=== PATIENT | female | born 1960 | race Caucasian/White ===

== ENCOUNTER → 2023-05-10 | Outpatient (CLI) | payer MEDICARE, OTHER ==
--- NOTE | 2023-05-10 15:45 | MR ---
EXAMINATION TYPE: MR brain wo/w con DATE OF EXAM: 05/10/2023 COMPARISON: No comparisons available. HISTORY: Breast cancer. TECHNIQUE: Multiplanar, multisequence images of the brain and brainstem is performed without and with IV contras t, utilizing 4 mL intravenous Gadavist . FINDINGS: There is no extra-axial fluid collection. Scattered T2/FLAIR hyperintense foci within the p eriventricular and subcortical white matter and left cerebellum. No corresponding enhancement identif ied. There is corresponding restricted diffusion involving the left cerebellum lesion measuring up to 6 mm (series 303, image 80). Developmental venous anomaly identified within the right cerebellum. No other regions of enhancement injury. The ventricular system and cisternal spaces are normal in size and appearance. The brain volume is age appropriate. Age-appropriate cerebral volume loss. No foci o f susceptibility artifact identified within the SWI sequences. Midline structures demonstrate normal morphology. The craniocervical junction appears within normal limits. Bilateral aphakia. Mild to moderate mucosal thickening of the bilateral maxillary sinuses. M ild mucosal thickening identified within the right aspect of the nasopharynx. IMPRESSION: 1. Few scattered FLAIR signal hyperintense foci within the periventricular and subcortical white henry er and the left cerebellum. No corresponding contrast enhancement. There is corresponding restricted diffusion within the left cerebellum FLAIR signal focus. Etiologies include acute/subacute infarct ve rsus metastasis versus other etiologies such as chronic small vessel ischemic disease. Correlation wi th prior MR imaging is recommended to assess for interval change. 2. Developmental venous anomaly within the right cerebellum. 3. Paranasal sinus disease.
== END | disposition home or self-care (01) ==
LOC: RADMRIMAIN 13:35
PROVIDERS: ATTEND Internal Medicine
DX: C50.912 Malignant neoplasm of unspecified site of left female breast (principal); G93.89 Other specified disorders of brain; J34.89 Other specified disorders of nose and nasal sinuses
CPT/HCPCS: 70553; A9585

== ENCOUNTER → 2023-05-15 | Outpatient (CLI) | payer MEDICARE, OTHER ==
--- NOTE | 2023-05-20 08:30 | PE ---
EXAMINATION TYPE: PET CT fusion skull to thigh DATE OF EXAM: 05/15/2023 COMPARISON: CT abdomen and pelvis 04/14/2023, CT chest 04/14/2023 Prior PET/CT: No prior PET. HISTORY: Breast cancer TECHNIQUE: Following the intravenous administration of 11.11 mCi of F-18 FDG, whole body images are performed from the skull base to the midthigh. Images are reviewed on the computer in the coronal, a xial, and sagittal planes. Reconstructed rotating images are created on independent workstation and reviewed on the computer. A localization and attenuation correction CT is performed in conjunction with the PET scan. DLP: 188.41 mGycm SCAN: Subsequent Blood glucose: 98 mg/dL Average Mediastinum SUV: 1.66 Average Liver SUV: 2.03 FINDINGS: NECK: Some mild inflammatory change may be at the left C1-C2 facet. Metastasis not excluded. There is a small focus of radiotracer within the subcutaneous tissue left posterior neck above the le randolph of the clavicles, image 41 is the 1.89. Infection and metastatic disease should be considered. THORAX: There is intense uptake posterior to the right lobe of thyroid. This measures 6.44 and is preeti picious for metastatic disease. There is some extension towards the superior mediastinum adjacent to the trachea there is additional right paratracheal intense uptake with SUV of 7.05, example image 69. There is a focus of radiotracer accumulation within the medial left upper lung field with an SUV of 5 .96. Image 72. A smaller focus of radiotracer accumulation is in the lateral right upper lobe, image 75 with SUV 2.84. There is marked increased uptake within the subcarinal lymph node with an SUV of 6.41. A right hilar lymph node, 6 image 687 has an SUV of 4.83. There is right posterior infrahilar radiotracer within HELM V of 4.54. Small nodule within the anterior mediastinum has an SUV of 1.3, image 92 ABDOMEN: No abnormal uptake PELVIS: No abnormal uptake OSSEOUS STRUCTURES: There is a focus radiotracer within a posterior left rib, image 76 SUV 1.68. Urania static disease could be considered. Posttraumatic change could also be considered within the differen tial. There is focal uptake within the inferior sternum, image 96-100 SUV 3.29-4.27. There is a focus radiotracer within the T12 vertebral body with an SUV 3.6, image 109. There is radiotracer within th e greater trochanter of the left hip. 2.[address]: Lung nodules are well visualized. COMPARISON: Findings are similar to the recent CT IMPRESSION: 1. Increased uptake within multiple pulmonary nodules compatible with metastatic disease. 2. Mediastinal uptake including subcarinal paratracheal superior mediastinal uptake is compatible wit h metastatic disease. 3. Metastasis to the osseous structures including greater trochanter left hip, T12 vertebral body, an d lower sternum. Posterior mid left rib metastasis traumatic change be considered.
== END | disposition home or self-care (01) ==
LOC: RADPETMAIN 13:18
PROVIDERS: ATTEND Internal Medicine
DX: C79.51 Secondary malignant neoplasm of bone (principal); C50.912 Malignant neoplasm of unspecified site of left female breast; R91.8 Other nonspecific abnormal finding of lung field
CPT/HCPCS: 78815; A9552

== ENCOUNTER 2023-05-27 11:19 | Day surgery (SDC) | payer MEDICARE, OTHER ==
[~2023-05-27 11:19] MED LIST: LACTATED RINGERS 1,000 ML IV SCH
[2023-05-27] MEDS ORDERED: ONDANSETRON 4 MG/2 ML VIAL ONE ×2 (12:57→13:05)
[2023-05-27] MEDS ORDERED: LIDOCAINE 1% (10MG/ML) FOR IV START INTRADERMA ONE (12:59)
[2023-05-27] MEDS ORDERED: ONDANSETRON 4 MG/2 ML VIAL IVP ONE (12:59)
[2023-05-27] MEDS ORDERED: DEXAMETHASONE SOD PHOSPHATE 4 MG/ML 1 ML VIAL IV ONE (12:59)
--- NOTE | 2023-05-27 13:04 | CT ---
EXAMINATION TYPE: CT chest wo con CT DLP: 221 mGycm, Automated exposure control for dose reduction was used. DATE OF EXAM: 05/27/2023 12:40 PM COMPARISON: Pet/CT 05/15/2023 CLINICAL INDICATION:Female, 63 years old with history of R91.1 Solitary Pulmonary Nodule; PHH, ION CH EST CT. TECHNIQUE: Multiple axial images were obtained through the chest. Sagittal and coronal reformats were created for review. Contrast used: (None if empty) Oral contrast used: (None if empty) FINDINGS: LUNGS/ PLEURA: Trace right pleural effusion which appears loculated. The right pulmonary hilum prior FDG avid lymph node measuring 17 x 16 mm. Additional right lower lobe mass measuring 25 x 16 mm. Left upper lung mass along the major fissure measuring 18 x 17 mm. Additional smaller pulmonary nodules w hich were FDG avid on prior PET/CT. Mild centrilobular emphysema changes. No focal consolidation or p neumothorax. AIRWAY: Patent and unremarkable. HEART: Size within normal limits. MEDIASTINUM: Subcarinal lymph node measuring up to 14 mm in short axis. Right low paratracheal partially calcified lymph node measuring up to 15 mm in short axis. Prevascula r space lymphadenopathy on the right r high paratracheal measuring 14 mm in short axis. VASCULATURE: Atherosclerosis of the arterial vasculature including the carotid bifurcations and the c oronary arteries. MUSCULOSKELETAL: No acute fracture. Osseous metastatic disease including Sternal mass in T12 vertebra l body mass. Degenerative on prior CT scans. SOFT TISSUES/LYMPH NODES: Left posterior upper back nodu le which is mildly FDG avid measures roughly 7 mm. LOWER NECK: No significant findings. Left posterior upper back UPPER ABDOMEN: No significant findings. IMPRESSION: 1. Redemonstration of FDG avid pulmonary masses and mediastinal lymph nodes, right pulmonary hilum l ymph nodes, and osseous metastatic disease as seen on PET/CT. 2. Left upper back 7 mm subcutaneous nodule just under the epidermis correlate with dermatologic zeb luation. 3. Mild emphysema changes. 4. Loculated right pleural effusion
[2023-05-27] MEDS ORDERED: NEOSTIGMINE 1 MG/ML 10 ML VIAL ONE (13:05)
[2023-05-27] MEDS ORDERED: SUCCINYLCHOLINE CHLORIDE 200 MG/10 ML VIAL IV ONE (13:05)
[2023-05-27] MEDS ORDERED: HYDROmorphone (PF) 1 MG/ML ONE (13:05)
[2023-05-27] MEDS ORDERED: PROPOFOL 10 MG/ML 20 ML VIAL IV ONE (13:05)
[2023-05-27] MEDS ORDERED: ROCURONIUM 10 MG/ML (5 ML VIAL) IV ONE (13:05)
[2023-05-27] MEDS ORDERED: LIDOCAINE 2% INJ 20 MG/ML (2 ML VIAL) ONE (13:05)
[2023-05-27] MEDS ORDERED: PHENYLEPHRINE-0.9% NACL SYG 1,000 MCG/10 ML SYRINGE ONE (13:05)
[2023-05-27] MEDS ORDERED: GLYCOPYRROLATE 0.2 MG/ML 2 ML VIAL ONE (13:05)
[2023-05-27] MEDS ORDERED: fentaNYL (PF) 50 MCG/ML 2 ML AMP ONE (13:05)
[2023-05-27] MEDS ORDERED: LIDOCAINE 4% LTA KIT (4 ML) TOPICAL ONE (13:05)
[2023-05-27] MEDS ORDERED: LACTATED RINGERS 1,000 ML IV ONE (14:31)
--- NOTE | 2023-05-27 14:59 | FL ---
Intraoperative/procedural fluoroscopic services were provided for bronchoscopy. Total fluoroscopy maría e is 2 minutes 10 seconds with a total of 3 submitted images to PACS. Total DAP 6.8148 Gycm2. Please see the operative note for further details.
[2023-05-27 15:06] VITALS: TEMP 98.1
--- NOTE | 2023-05-27 15:17 | XR ---
EXAMINATION TYPE: XR chest 1V portable DATE OF EXAM: 05/27/2023 COMPARISON: 05/27/2023 HISTORY: Postbronchoscopy TECHNIQUE: Single frontal view of the chest is obtained. FINDINGS: Bilateral spiculated masses. There is no sizable pneumothorax or pneumomediastinum. There is a lateral indentation of the right trachea. Right-sided consolidation and small effusion or pleura l thickening. Surgical clips along the left axilla and chest. Hypertrophic and degenerative change sp ine. Atherosclerotic change aorta. IMPRESSION: 1. COPD with bilateral spiculated masses but no sizable pneumothorax. 2. Right lower lobe infiltrate and small effusion.
[2023-05-27 15:32] VITALS: RESP 20
[2023-05-27 16:32] VITALS: BP 129/81; PULSE 117
--- NOTE | 2023-05-27 17:12 | P.PCN ---
Date of Procedure: 05/27/23 Operative Findings: Preoperative Diagnosis: Left uppwe lobe mass Right lower lobe pulmonary nodule Mediastinal lymphadenopathy Postoperative Diagnosis: Left uppwe lobe mass Right lower lobe pulmonary nodule Mediastinal lymphadenopathy, involving the subcarinal, right hilar and right paratracheal stations Procedure(s) Performed: Flexible bronchoscopy Robotic-assisted bronchoscopy and addition to radial ultrasound evaluation of the pulmonary nodule Robotic-assisted transbronchial needle aspirate, transbronchial biopsies, transbronchial brushing of left upper lobe mass in addition to a bronchioloalveolar lavage Robotic-assisted transbronchial biopsies of right right lower lobe in addition to a bronchioloalveolar lavage EBUS/endobronchial ultrasound EBUS guided biopsies of station 7 and station 4R lymph nodes. Anesthesia: GETA Surgeon: Rolf Barlow Estimated Blood Loss (ml): 0 Pathology: other Condition: stable Disposition: same day Operative Findings: A physical exam was performed. Informed consent was obtained from the patient after explaining all the risks (pneumothorax, life threatening bleeding, infection and adverse effects due to medications), benefits and alternatives to the procedure which the patient appeared to understand and so stated. The patient was connected to the monitoring devices. General anesthesia was induced and the patient was intubated by anesthesia. A final timeout was performed and the procedure confirmed by the attending staff bronchoscopist. The bronchoscope was inserted and the airway examined. The flexible bronchoscope was removed and the robotic bronchoscope was inserted. Registration was completed. I next guided the robotic bronchoscope using the navigation system into the right lower lobe posterior segment. Once in proper position, the bronchoscope was frozen. The radial EBUS probe was placed through the bronchoscope and confirmed abnormal u/s images vs normal lung. A needle was placed through the working channel and under fluoroscopic guidance, we sampled the area thought to have the mass twice. We then used a cloud biopsy pattern with ultrasound confirmation for 2 additional passes with the needle. U/S evaluation was then used to reconfirm location. Forceps were next introduced through working channel and extended the appropriate distance and 3 transbronchial biopsies were performed using fluoroscopic guidance. The u/s probe was then reinserted to confirm location. When confirmed this process was repeated for a total of 6 transbronchial biopsies. After reassessment with EBUS, a brush was placed through the extendable working channel for 1 pass with fluoroscopic guidance. U/S evaluation was then used to confirm location. 40ml of saline was then instilled into the area of the lesion. The robotic bronchoscope was removed and the airway inspected with a flexible bronchoscope and 10 ml of effluent from the BAL was collected. The aspirate was bloody and ultimately declotted and based on that, the sample was discarded. Subsequently, the robotic bronchoscope was directed to the apical segment of the left upper lobe. Ultrasound evaluation confirmed location. Using robotic guidance, the bronchoscope was removed hours the lesion and an endobronchial lesion was identified. Forceps was introduced and transbronchial biopsies of the left upper lobe mass was done and a total of 6-8 biopsies were obtained. Also, a bronchial lavage the right apex was done with a total of 20 mL of fluid was infused and 10 mL was aspirated. Fluoroscopic check for pneumothorax was negative upon completion of the procedure. There was 0 ml blood loss with the procedure. Subsequent to that, the endobronchial ultrasound was inserted and the mediastinal lymph node evaluation was done. A large subcarinal station 7 lymph node was identified measuring approximately 3 cm in size. Another 2.5 cm right paratracheal station 4R lymph node was also identified. Using a 22 guage Vizishot , transbronchial needle aspirates of the subcarinal and station 4R lymph node was done without any complications. FINDINGS: 1.The airways appeared normal 2 Successful navigation, ultrasonographic identification, and biopsies of right lower lobe mass in the left upper lobe mass 3.The the radial ultrasound view was (Concentric/Eccentric)}. 3 successful transbronchial needle aspirate of subcarinal and station 4R lymph node RECOMMENDATIONS: Await pathology and cytology results The referring physician will be alerted to the results when available. The patient was advised to follow up with the referring physician with the biopsy results
== END 2023-05-27 16:27 | disposition home or self-care (01) ==
LOC: ORWHC2ENDO 11:19
PROVIDERS: ATTEND Internal Medicine Critical Care Medicine
DX: C34.31 Malignant neoplasm of lower lobe, right bronchus or lung (principal); J90 Pleural effusion, not elsewhere classified; J43.9 Emphysema, unspecified; F17.210 Nicotine dependence, cigarettes, uncomplicated; Z79.51 Long term (current) use of inhaled steroids; Z85.3 Personal history of malignant neoplasm of breast
CPT/HCPCS: 88108; 88305; 88342; 88341; 71045; 71250; 31628; 31633; 31623; 31624; 31652; J0330; J1100; J2710; J2405; J3010; J1170; J2704; J2001; J2371; S2900

== ENCOUNTER 2023-06-12 13:11 | Emergency (ER) | payer MEDICARE, OTHER ==
[2023-06-12 13:35] VITALS: TEMP 98.2
--- NOTE | 2023-06-12 14:49 | ED ---
Extremity Problem HPI - General Chief complaint: Extremity Problem,Nontraumatic Stated complaint: swollen hot red right leg Time Seen by Provider: 06/12/23 14:42 Source: patient, RN notes reviewed Mode of arrival: ambulatory Limitations: no limitations - History of Present Illness Initial comments: 63-year-old female who presents with complaints of the onset Wednesday night and Wednesday morning today being Wednesday of right lower extremity pain redness ascending up to the back of her thigh. She's had chills but no fevers no sweats no trauma reported no history of blood clots in the past. No injury at all reported in recent time. No shortness breath no chest pain no palpitations or other complaints or modifying factors MD Complaint: extremity pain, other - Related Data Home Medications Medication Instructions Recorded Confirmed Fluticasone Propion/Salmeterol 1 puff INHALATION RT-BID 05/24/23 06/12/23 [Fluticasone-Salmeterol 250-50] Tiotropium [place] [Spiriva 1 puff INHALATION RT-DAILY 05/24/23 06/12/23 Handihaler] cycloSPORINE [Restasis Multidose] 1 drop BOTH EYES BID 05/24/23 06/12/23 Omeprazole 20 mg PO DAILY 06/12/23 06/12/23 Previous Rx's Medication Instructions Recorded Apixaban [Eliquis Starter Pack 5 - 10 mg PO DIRECTED 30 Days 06/12/23 (for VTE)] #1 each Allergies Allergy/AdvReac Type Severity Reaction Status Date / Time No Known Allergies Allergy Verified 06/12/23 17:12 Review of Systems ROS Statement: Those systems with pertinent positive or pertinent negative responses have been documented in the HPI. ROS Other: All systems not noted in ROS Statement are negative. Past Medical History Past Medical History: Cancer, COPD, GERD/Reflux Additional Past Medical History / Comment(s): dry eyes,breast cancer, History of Any Multi-Drug Resistant Organisms: None Reported Past Surgical History: Breast Surgery, Orthopedic Surgery Additional Past Surgical History / Comment(s): carpal tunnel ,cataracts, partial mastectomy lft, rt ear sinus Past Anesthesia/Blood Transfusion Reactions: No Reported Reaction Past Psychological History: Anxiety Smoking Status: Current every day smoker Past Alcohol Use History: Occasional Past Drug Use History: None Reported - Past Family History Mother Family Medical History: Cancer Additional Family Medical History / Comment(s): mealanoma General Exam - General Exam Comments Initial Comments: This is a well-developed frail-appearing female who is awake alert oriented 4 Limitations: no limitations General appearance: alert, in no apparent distress Head exam: Present: atraumatic, normocephalic, normal inspection Eye exam: Present: normal appearance, PERRL, EOMI. Absent: scleral icterus, conjunctival injection, periorbital swelling ENT exam: Present: normal exam, mucous membranes moist Neck exam: Present: normal inspection, full ROM, other (no stridor JVD or bruits). Absent: tenderness, meningismus, lymphadenopathy Respiratory exam: Present: normal lung sounds bilaterally. Absent: respiratory distress, wheezes, rales, rhonchi, stridor Cardiovascular Exam: Present: tachycardia. Absent: systolic murmur, diastolic murmur, rubs, gallop, clicks GI/Abdominal exam: Present: soft, normal bowel sounds. Absent: distended, tenderness, guarding, rebound, rigid Extremities exam: Present: full ROM, tenderness (Tenderness palpation of the posterior thigh no palpable cords however there is increased localized temperature with erythema ascending from the medial ankle upward.), normal capillary refill. Absent: pedal edema, joint swelling, calf tenderness Back exam: Present: normal inspection Neurological exam: Present: alert, oriented X3, CN II-XII intact Psychiatric exam: Present: normal affect, normal mood Skin exam: Present: warm, dry, intact, normal color. Absent: rash Course Vital Signs 06/12/23 06/12/23 13:25 17:14 Temperature 98.2 F Pulse Rate 112 H Respiratory 20 Rate Blood Pressure 129/79 132/77 O2 Sat by Pulse 99 99 Oximetry Procedures - Smoking Cessation Time Spent Discussing Smoking Cessation w/Patient (Minutes): 4 Medical Decision Making - Medical Decision Making I did discuss the findings with the patient and her . Patient was given options of inpatient versus outpatient she does not want to be admitted. She will be started on Eliquis and follow-up with Dr. Rodriguez as they have planned. Was pt. sent in by a medical professional or institution (, PA, STRETCHER HELPER, urgent care, hospital, or assisted...) When possible be specific @ -No Did you speak to anyone other than the patient for history (EMS, parent, family, police, friend...)? What history was obtained from this source @ -Patient's Did you review nursing and triage notes (agree or disagree)? Why? @ -I reviewed and agree with nursing and triage notes Were old charts reviewed (outside hosp., previous admission, EMS record, old EKG, old radiological studies, urgent care reports/EKG's, assisted records)? Report findings @ - old charts were reviewed Differential Diagnosis (chest pain, altered mental status, abdominal pain women, abdominal pain men, vaginal bleeding, weakness, fever, dyspnea, syncope, headache, dizziness, GI bleed, back pain, seizure, CVA, palpatations, mental health, musculoskeletal)? @ -DVT, phlebitis EKG interpreted by me (3pts min.). @ -Not done X-rays interpreted by me (1pt min.). @ -None done CT interpreted by me (1pt min.). @ -None done U/S interpreted by me (1pt. min.). @ -Interpreted by me evidence of DVT proximal calf up to the popliteal vein on the right What testing was considered but not performed or refused? (CT, X-rays, U/S, labs)? Why? @ -None What meds were considered but not given or refused? Why? @ -None Did you discuss the management of the patient with other professionals (professionals i.e. , PA, STRETCHER HELPER, lab, RT, psych nurse, social group worker, school plant consultant, teacher, chief financial officer, rifle case repairer)? Give summary @ -No Was smoking cessation discussed for >3mins.? @ -Yes Was critical care preformed (if so, how long)? @ -No Were there social determinants of health that impacted care today? How? (Homelessness, low income, unemployed, alcoholism, drug addiction, transportation, low edu. Level, literacy, decrease access to med. care, shelter, rehab)? @ -No Was there de-escalation of care discussed even if they declined (Discuss DNR or withdrawal of care, Hospice)? DNR status @ -No What co-morbidities impacted this encounter? (DM, HTN, Smoking, COPD, right lower extremity, Cancer, CVA, ARF, Chemo, Hep., AIDS, mental health diagnosis, sleep apnea, morbid obesity)? @ -History of breast cancer, COPD, GERD, smoking Was patient admitted / discharged? Hospital course, mention meds given and route, prescriptions, significant lab abnormalities, going to OR and other pertinent info. @ -hospital course patient was discharged with follow-up with her doctor as she is requested Undiagnosed new problem with uncertain prognosis? @ -DVT right lower extremity Drug Therapy requiring intensive monitoring for toxicity (Heparin, Nitro, Insulin, Cardizem)? @ -No Were any procedures done? @ -No Diagnosis/symptom? @ -Right lower extremity DVT, dehydration Acute, or Chronic, or Acute on Chronic? @ -Acute Uncomplicated (without systemic symptoms) or Complicated (systemic symptoms)? @ - Side effects of treatment? @ -No Exacerbation, Progression, or Severe Exacerbation? @ -No Poses a threat to life or bodily function? How? (Chest pain, [place], [place], pneumonia, PE, COPD, DKA, ARF, appy, cholecystitis, CVA, Diverticulitis, Homicidal, Suicidal, threat to staff... and all critical care pts) @ - - Lab Data Result diagrams: 06/12/23 14:42 06/12/23 14:42 Lab Results 06/12/23 06/12/23 06/12/23 Range/Units 14:42 14:42 15:39 WBC 7.8 (3.8-10.6) k/uL RBC 5.65 H (3.80-5.40) m/uL Hgb 18.5 H (11.4-16.0) gm/dL Hct 55.8 H (34.0-46.0) % MCV 98.8 (80.0-100.0) fL MCH 32.7 (25.0-35.0) pg MCHC 33.1 (31.0-37.0) g/dL RDW 12.7 (11.5-15.5) % Plt Count 445 (150-450) k/uL MPV 7.5 Neutrophils % 76 % Lymphocytes % 13 % Monocytes % 7 % Eosinophils % 2 % Basophils % 0 % Neutrophils # 6.0 (1.3-7.7) k/uL Lymphocytes # 1.0 (1.0-4.8) k/uL Monocytes # 0.6 (0-1.0) k/uL Eosinophils # 0.2 (0-0.7) k/uL Basophils # 0.0 (0-0.2) k/uL PT 9.6 L (10.0-12.5) sec INR 0.8 (<1.2) APTT 24.8 (22.0-30.0) sec Sodium 133 L (137-145) mmol/L Potassium 5.5 H (3.5-5.1) mmol/L Chloride 99 (98-107) mmol/L Carbon Dioxide 23 (22-30) mmol/L Anion Gap 11 mmol/L BUN 7 (7-17) mg/dL Creatinine 0.39 L (0.52-1.04) mg/dL Est GFR (CKD-EPI)AfAm >90 (>60 ml/min/1.73 sqM) Est GFR (CKD-EPI)NonAf >90 (>60 ml/min/1.73 sqM) Glucose 97 (74-99) mg/dL Calcium 9.6 (8.4-10.2) mg/dL Total Bilirubin 1.3 (0.2-1.3) mg/dL AST 37 H (14-36) U/L ALT 13 (4-34) U/L Alkaline Phosphatase 114 (38-126) U/L Total Protein 7.6 (6.3-8.2) g/dL Albumin 3.7 (3.5-5.0) g/dL - Radiology Data Interpreted by me: Ultrasound interpreted by me evidence of DVT in right lower extremity Disposition Clinical Impression: Deep vein thrombosis (DVT) of lower extremity, Dehydration, History of breast cancer Disposition: HOME SELF-CARE Condition: Good Prescriptions: Apixaban [Eliquis Starter Pack (for VTE)] 5 - 10 mg PO DIRECTED 30 Days #1 each Is patient prescribed a controlled substance at d/c from ED?: No Referrals: None,Stated [Primary Care Provider] - 1-2 days Decision Date: 06/12/23 Decision Time: 17:41
--- NOTE | 2023-06-12 14:58 | US ---
EXAMINATION TYPE: US venous doppler duplex LE RT DATE OF EXAM: 06/12/2023 2:29 PM COMPARISON: NONE CLINICAL INDICATION: Female, 63 years old with history of pain; Right calf pain SIDE PERFORMED: Right TECHNIQUE: The lower extremity deep venous system is examined utilizing real time linear array sonog david with graded compression, doppler sonography and color-flow sonography. VESSELS IMAGED: Common Femoral Vein Deep Femoral Vein Greater Saphenous Vein * Femoral Vein Popliteal Vein Small Saphenous Vein * Proximal Calf Veins (* superficial vessels) Right Leg: Positive for DVT popliteal vein and proximal calf vein Remaining vessels are patent with normal compressibility. IMPRESSION: Deep venous thrombosis involving the right popliteal vein. Findings are causing discussed with ordering provider Dedoe on 06/12/[address] Mckenzie.
[2023-06-12 14:59] LABS: Basophils % (A) 0 %; Eosinophils # (A) 0.2 k/uL (0-0.7); Eosinophils % (A) 2 %; HGB 18.5 gm/dL (11.4-16.0); Lymphocytes % (A) 13 %; MCH 32.7 pg (25.0-35.0); MCHC 33.1 g/dL (31.0-37.0); MCV 98.8 fL (80.0-100.0); Mean Platelet Volume 7.5; Monocytes # (A) 0.6 k/uL (0-1.0); Monocytes % (A) 7 %; Neutrophils % (A) 76 %; Platelet Count 445 k/uL (150-450); RBC 5.65 m/uL (3.80-5.40); RDW 12.7 % (11.5-15.5); WBC 7.8 k/uL (3.8-10.6)
[2023-06-12 15:18] LABS: ALT 13 U/L (4-34); AST 37 U/L (14-36); African American GFR (CKD) >90 (>60 ml/min/1.73 sqM); Albumin 3.7 g/dL (3.5-5.0); Alkaline Phosphatase 114 U/L (38-126); Anion Gap 11 mmol/L; Blood Urea Nitrogen 7 mg/dL (7-17); Calcium 9.6 mg/dL (8.4-10.2); Carbon Dioxide 23 mmol/L (22-30); Chloride 99 mmol/L (98-107); Glucose 97 mg/dL (74-99); Non-African American GFR(CKD) >90 (>60 ml/min/1.73 sqM); Sodium 133 mmol/L (137-145); Total Bilirubin 1.3 mg/dL (0.2-1.3); Total Protein 7.6 g/dL (6.3-8.2)
[2023-06-12 15:21] LABS: Potassium 5.5 mmol/L (3.5-5.1)
[2023-06-12 15:30] LABS: HCT 55.8 % (34.0-46.0)
[2023-06-12 16:02] LABS: Partial Thromboplastin Time 24.8 sec (22.0-30.0); Prothrombin Time 9.6 sec (10.0-12.5)
--- NOTE | 2023-06-12 16:04 | XR ---
EXAMINATION TYPE: XR chest 2V DATE OF EXAM: 06/12/2023 3:51 PM CLINICAL INDICATION:Female, 63 years old with history of DVT, tachycardia. COMPARISON: Chest radiographs from TECHNIQUE: XR chest 2V Frontal and lateral views of the chest. FINDINGS: Lungs/Pleura: Right pleural effusion is identified with associated linear opacity which likely repres ents tracking of fluid. No evidence of pneumothorax. Pulmonary vascularity: Unremarkable. Heart/mediastinum: Cardiomediastinal silhouette is unremarkable. Musculoskeletal: No acute osseous pathology. Postsurgical changes are identified in the left axilla. IMPRESSION: Small right pleural effusion.
[2023-06-12 16:14] LABS: INR 0.8 (<1.2)
[2023-06-12] MEDS ORDERED: fentaNYL (PF) 50 MCG/ML 2 ML AMP IVP ONE (16:50)
[2023-06-12] MEDS ORDERED: APIXABAN 5 MG TAB PO STA (17:28)
[2023-06-12 20:44] VITALS: BP 123/76; PULSE 89; RESP 16
== END 2023-06-12 20:39 | disposition home or self-care (01) ==
LOC: EC 13:11
DX: I82.431 Acute embolism and thrombosis of right popliteal vein (principal); E86.0 Dehydration; J90 Pleural effusion, not elsewhere classified; J44.9 Chronic obstructive pulmonary disease, unspecified; F17.200 Nicotine dependence, unspecified, uncomplicated; K21.9 Gastro-esophageal reflux disease without esophagitis; Z86.59 Personal history of other mental and behavioral disorders; Z79.899 Other long term (current) drug therapy; Z79.51 Long term (current) use of inhaled steroids; Z85.3 Personal history of malignant neoplasm of breast
CPT/HCPCS: 36415; 71046; 80053; 85025; 85610; 85730; 99284; 99406

== ENCOUNTER → 2023-06-25 | Outpatient (CLI) | payer MEDICARE, OTHER ==
--- NOTE | 2023-06-26 12:01 | CA ---
Transthoracic Echo Report Name: Joan Huston Age: 63 Gender: F : 1960 Exam Date: 06/25/2023 16:52 Exam Location: [place] [facility] Ht (in): 64 Wt (lb): 89 Ordering Physician: Dawn Rodriguez MD Attending/Referring Phys: It Analyst Tiffany Alvarez [facility] Procedure CPT: Indications: Z01.818 Pre-procedural Cardiac Hx: Technical Quality: Fair Contrast 1: Total Dose (mL): Contrast 2: Total Dose (mL): MEASUREMENTS (Male / Female) Normal Values 2D ECHO LV Diastolic Diameter PLAX 3.8 cm 4.2 - 5.9 / 3.9 - 5.3 cm LV Systolic Diameter PLAX 2.7 cm IVS Diastolic Thickness 0.8 cm 0.6 - 1.0 / 0.6 - 0.9 cm LVPW Diastolic Thickness 0.8 cm 0.6 - 1.0 / 0.6 - 0.9 cm LV Relative Wall Thickness 0.4 LVOT Diameter 2.0 cm LV Diastolic Volume MOD BP 39.4 cm??? 67 - 155 / 56 - 104 cm??? LV Systolic Volume MOD BP 12.1 cm??? 22 - 58 / 19 - 49 cm??? LV Ejection Fraction MOD BP 69.2 % >= 55 % LV Cardiac Index MOD BP 1963.1 cm???/min???m??? LV Diastolic Volume MOD 4C 44.4 cm??? LV Systolic Volume MOD 4C 12.6 cm??? LV Ejection Fraction MOD 4C 71.7 % LV Cardiac Index MOD 4C 2290.3 cm???/min???m??? LV Diastolic Length 4C 7.1 cm LV Systolic Length 4C 5.7 cm LV Diastolic Volume MOD 2C 33.3 cm??? LV Systolic Volume MOD 2C 11.5 cm??? LV Ejection Fraction MOD 2C 65.3 % LV Cardiac Index MOD 2C 1565.0 cm???/min???m??? LV Diastolic Length 2C 6.7 cm LV Systolic Length 2C 6.0 cm M-MODE Aortic Root Diameter MM 2.9 cm LA Systolic Diameter MM 3.1 cm LA Ao Ratio MM 1.1 AV Cusp Separation MM 1.9 cm DOPPLER AV Peak Velocity 121.1 cm/s AV Peak Gradient 5.9 mmHg AV Mean Velocity 89.1 cm/s AV Mean Gradient 3.5 mmHg AV Velocity Time Integral 22.8 cm LVOT Peak Velocity 106.3 cm/s LVOT Peak Gradient 4.5 mmHg LVOT Velocity Time Integral 19.9 cm LVOT Stroke Volume 60.0 cm??? LVOT Stroke Volume Index 43.3 ml/m??? LVOT Cardiac Index 4320.9 cm???/min???m??? AV Area Cont Eq vti 2.6 cm??? AV Area Cont Eq pk 2.6 cm??? Mitral E Point Velocity 72.4 cm/s Mitral A Point Velocity 90.7 cm/s Mitral E to A Ratio 0.8 MV Deceleration Time 130.3 ms LV E' Lateral Velocity 8.9 cm/s Mitral E to LV E' Lateral Ratio 8.1 LV E' Septal Velocity 8.0 cm/s Mitral E to LV E' Septal Ratio 9.0 TR Peak Velocity 241.1 cm/s TR Peak Gradient 23.2 mmHg Right Atrial Pressure 3.0 mmHg Pulmonary Artery Systolic Pressu 26.2 mmHg Right Ventricular Systolic Press 26.2 mmHg FINDINGS Left Ventricle Left ventricular wall thickness normal. Small left ventricular cavity. Normal left ventricular systolic function with no obvious regional wall motion abnormalities. Left ventricular ejection fraction is estimated at 55-60%. Right Ventricle Normal right ventricular size. Right Atrium Normal right atrial size. Left Atrium Normal left atrial size. Mitral Valve Structurally normal mitral valve. Trace mitral regurgitation. Aortic Valve Trileaflet aortic valve. Diffuse thickening (sclerosis) of the aortic valve cusps without reduced excursion. No aortic regurgitation. Tricuspid Valve Structurally normal tricuspid valve. Trace tricuspid regurgitation. Pulmonic Valve Pulmonic valve not well visualized. Pericardium No pericardial effusion. Aorta Normal size aortic root. CONCLUSIONS Left ventricular ejection fraction 55-60% Trace mitral regurgitation Trace tricuspid regurgitation RVSP 26 Previewed by: Dr. Enrique Cotto DO (Electronically Signed) Final Date: 26 June 2023 12:00
== END | disposition home or self-care (01) ==
LOC: RADECHMAIN 16:12
PROVIDERS: ATTEND Internal Medicine
DX: Z01.818 Encounter for other preprocedural examination (principal); I08.1 Rheumatic disorders of both mitral and tricuspid valves; C34.90 Malignant neoplasm of unspecified part of unspecified bronchus or lung; C50.912 Malignant neoplasm of unspecified site of left female breast; R91.1 Solitary pulmonary nodule; Z71.3 Dietary counseling and surveillance
CPT/HCPCS: 93306

== ENCOUNTER → 2023-11-25 | Outpatient (CLI) | payer MEDICARE, OTHER ==
--- NOTE | 2023-11-26 10:59 | PE ---
EXAMINATION TYPE: PET CT fusion skull to thigh DATE OF EXAM: 11/25/2023 CLINICAL INDICATION:Female, 63 years old with history of C50.912; TECHNIQUE: Following the intravenous administration of 9.29 mCi of F-18 FDG, whole body images are performed from the skull base to the midthigh. Images are reviewed on the computer in the coronal, a xial, and sagittal planes. Reconstructed rotating images are created on independent workstation and reviewed on the computer. A non-contrast CT is performed in conjunction with the PET scan. Glucose level 100 mg/dL CT DLP: 155 mGycm, Automated exposure control for dose reduction was used. COMPARISON: CT 05/19/2023, PET/CT 05/15/2023, FINDINGS: Mediastinal SUV mean is 2.0. Hepatic parenchyma SUV mean is 2.3. SKULL BASE AND NECK: No suspicious radiotracer activity. CHEST, MEDIASTINUM, AND HILAR REGION: * Right upper lung mass measuring 23 x 20 mm previously 13 x 12 mm. Max SUV 8.2, previously 3.5. Pre viously measuring * Left upper lung mass measuring 24 x 23 mm previously 16 x 14 mgr. Max SUV 13.6, previously 6.0. * Subcarinal lymph node max SUV 2.8, previously 7.4. Right paratracheal lymph node max SUV 3.2, prev iously 7.4. * Right supraclavicular/right high paratracheal lymph node max SUV 2.7, previously 7.4. ABDOMEN AND PELVIS: No suspicious radiotracer activity. MUSCULOSKELETAL STRUCTURES: Osseous uptake with Max SUV in the sternum 5.5, previously 5.3. OTHER CT: Bilaterally aphakia. Atherosclerosis of the carotid bifurcations. This course of the cuenca [place] arteries and arterial vasculature. IMPRESSION: 1. Increased metabolic activity and size of bilateral upper lung metastatic foci. 2. Mediastinal lymph nodes have decreased in size and FDG activity. 3. Stable sternal FDG activity given differences in technique.
== END | disposition home or self-care (01) ==
LOC: RADPETMAIN 11:48
PROVIDERS: ATTEND Internal Medicine
DX: C50.912 Malignant neoplasm of unspecified site of left female breast (principal); J98.4 Other disorders of lung
CPT/HCPCS: 78815; A9552

== ENCOUNTER → 2023-12-31 | Outpatient (CLI) | payer MEDICARE, OTHER ==
[2023-12-31 14:10] LABS: African American GFR (CKD) >90 (>60 ml/min/1.73 sqM); Blood Urea Nitrogen 6 mg/dL (7-17); Non-African American GFR(CKD) >90 (>60 ml/min/1.73 sqM)
--- NOTE | 2024-01-01 14:03 | CT ---
EXAMINATION TYPE: CT chest w con DATE OF EXAM: 12/31/2023 COMPARISON: 11/25/2023 PET/CT HISTORY: f/u lung ca CT DLP: 279 mGycm, Automated exposure control for dose reduction was used. CONTRAST: Performed injected with 100 mL of Isovue 300. TECHNIQUE: Axial images were obtained at 5 mm thick sections. Reconstructed images are reviewed on [employer] computer in the coronal plane. FINDINGS: Portion of the thyroid visualized is normal. There are some mild emphysematous changes present. There is a spiculated density upper right lung field measuring 2.5 cm. Series 4 image 21. This has en larged from comparison. A left suprahilar mass with some mild spiculation upper lung field measures 2 .3 cm. Series 4 image 20. This is stable in size from comparison. There is an approximately 2.3 cm a dean of spiculation in the right lower lung field. Series 4 image 37. This area appears better visual ized on the current exam. These areas have solid components on mediastinal windows. A 0.3 cm punctate densities in the anterior left lung. Series 4 image 27. Streak opacities in the rig ht middle lobe. No enlarged mediastinal or hilar adenopathy is evident. The ascending aorta diameter at the level o f the main pulmonary artery is 2.8 cm. The main pulmonary artery diameter at the bifurcation is 2.[address] sections are obtained through the upper abdomen. Abdomen is essentially unremarkable. IMPRESSION: 1. The solid mass at the left upper lung field is similar in size to prior study. 2. The more spiculated densities within the right upper and right lower lung garcia have increased in size over the interval. 3. Additional punctate density is identified in the left lung.
== END | disposition home or self-care (01) ==
LOC: RADCTMAIN 13:27
PROVIDERS: ATTEND Internal Medicine
DX: C34.90 Malignant neoplasm of unspecified part of unspecified bronchus or lung (principal); C50.912 Malignant neoplasm of unspecified site of left female breast; J98.4 Other disorders of lung; R91.1 Solitary pulmonary nodule; Z71.3 Dietary counseling and surveillance
CPT/HCPCS: 82565; 84520; 71260; 36415; Q9967

== ENCOUNTER → 2024-01-14 | Outpatient (CLI) | payer MEDICARE, OTHER ==
--- NOTE | 2024-01-14 17:59 | CA ---
Transthoracic Echo Report Name: Joan Huston Age: 63 Gender: F : 1960 Exam Date: 01/14/2024 14:26 Exam Location: [place] [facility] Ht (in): 64 Wt (lb): 92 Ordering Physician: Dawn Rodriguez MD Attending/Referring Phys: International Log[employer] Analyst My Lim RDCS Procedure CPT: Indications: Z01.818 Chemo exposure Cardiac Hx: Technical Quality: Excellent Contrast 1: Total Dose (mL): Contrast 2: Total Dose (mL): MEASUREMENTS (Male / Female) Normal Values 2D ECHO LV Diastolic Diameter PLAX 3.6 cm 4.2 - 5.9 / 3.9 - 5.3 cm LV Systolic Diameter PLAX 2.8 cm IVS Diastolic Thickness 0.7 cm 0.6 - 1.0 / 0.6 - 0.9 cm LVPW Diastolic Thickness 0.9 cm 0.6 - 1.0 / 0.6 - 0.9 cm LV Relative Wall Thickness 0.5 RV Internal Dim ED PLAX 2.2 cm LVOT Diameter 2.0 cm Aortic Root Diameter 3.0 cm LV Diastolic Volume MOD BP 71.2 cm??? 67 - 155 / 56 - 104 cm??? LV Systolic Volume MOD BP 29.9 cm??? 22 - 58 / 19 - 49 cm??? LV Ejection Fraction MOD BP 58.0 % >= 55 % LV Cardiac Index MOD BP 2920.5 cm???/min???m??? LV Diastolic Volume MOD 4C 73.2 cm??? LV Systolic Volume MOD 4C 31.0 cm??? LV Ejection Fraction MOD 4C 57.6 % LV Cardiac Index MOD 4C 2976.8 cm???/min???m??? LV Diastolic Length 4C 7.8 cm LV Systolic Length 4C 6.4 cm LV Diastolic Volume MOD 2C 68.5 cm??? LV Systolic Volume MOD 2C 28.7 cm??? LV Ejection Fraction MOD 2C 58.1 % LV Cardiac Index MOD 2C 2814.6 cm???/min???m??? LV Diastolic Length 2C 7.7 cm LV Systolic Length 2C 6.4 cm DOPPLER AV Peak Velocity 117.3 cm/s AV Peak Gradient 5.5 mmHg AV Mean Velocity 74.0 cm/s AV Mean Gradient 2.5 mmHg AV Velocity Time Integral 21.5 cm LVOT Peak Velocity 107.7 cm/s LVOT Peak Gradient 4.6 mmHg LVOT Velocity Time Integral 19.0 cm LVOT Stroke Volume 61.3 cm??? LVOT Stroke Volume Index 43.6 ml/m??? LVOT Cardiac Index 4334.0 cm???/min???m??? AV Area Cont Eq vti 2.9 cm??? AV Area Cont Eq pk 3.0 cm??? Mitral E Point Velocity 58.3 cm/s Mitral A Point Velocity 78.0 cm/s Mitral E to A Ratio 0.7 MV Deceleration Time 204.2 ms MV E' Velocity 7.9 cm/s Mitral E to MV E' Ratio 7.4 FINDINGS Left Ventricle Left ventricular ejection fraction is estimated at 55-60 %. Left ventricular cavity size normal. Left ventricular wall thickness normal. No obvious regional wall motion abnormalities. Normal average global longitudinal strain of the left ventricle with a value of - 20 %. Right Ventricle Normal right ventricular size and function. Unable to estimate the right ventricular systolic pressure. Right Atrium Normal right atrial size. Left Atrium Normal left atrial size. Mitral Valve Structurally normal mitral valve. No mitral stenosis, or prolapse. Trace mitral regurgitation. Aortic Valve Trileaflet aortic valve. No aortic valve stenosis or regurgitation. Tricuspid Valve Structurally normal tricuspid valve. No tricuspid stenosis. No tricuspid regurgitation. Pulmonic Valve Pulmonic valve not well visualized. No pulmonic stenosis. No pulmonic regurgitation. Pericardium No pericardial effusion. Aorta Normal size aortic root. Ascending aorta not well visualized. CONCLUSIONS 1. Normal ventricle size and systolic function with global longitudinal strain of -20% 2. Trace mitral regurgitation Previewed by: Dr. German Flores MD (Electronically Signed) Final Date: 14 Jan 2024 17:59
== END | disposition home or self-care (01) ==
LOC: RADECHMAIN 14:16
PROVIDERS: ATTEND Internal Medicine
DX: Z01.818 Encounter for other preprocedural examination (principal); I34.0 Nonrheumatic mitral (valve) insufficiency; C50.912 Malignant neoplasm of unspecified site of left female breast; C34.90 Malignant neoplasm of unspecified part of unspecified bronchus or lung; R91.1 Solitary pulmonary nodule; Z71.3 Dietary counseling and surveillance
CPT/HCPCS: 93306

== ENCOUNTER → 2024-02-17 | Outpatient (CLI) | payer MEDICARE, OTHER ==
--- NOTE | 2024-02-20 20:57 | PE ---
EXAMINATION TYPE: PET CT fusion skull to thigh DATE OF EXAM: 02/17/2024 CLINICAL INDICATION:Female, 63 years old with history of C34.11MALIGNANT NEOPLASM OF UPPER LOBE, RIGH T BRON; TECHNIQUE: Following the intravenous administration of 8.52 mCi of F-18 FDG, whole body images are performed from the skull base to the midthigh. Images are reviewed on the computer in the coronal, a xial, and sagittal planes. Reconstructed rotating images are created on independent workstation and reviewed on the computer. A non-contrast CT is performed in conjunction with the PET scan. Glucose level 97 mg/dL CT DLP: 153 mGycm, Automated exposure control for dose reduction was used. COMPARISON: CT 01/17/2024, PET/CT 11/17/2023, MRI: None FINDINGS: Mediastinal SUV mean is 1.8. Hepatic parenchyma SUV mean is 2.2. SKULL BASE AND NECK: No suspicious radiotracer activity. CHEST, MEDIASTINUM, AND HILAR REGION: No suspicious radiotracer activity. * Right upper lung mass measuring 26 x 18 mm, previously 23 x 20 mm and 13 x 12 mm. Max SUV 6.5 prev iously 8.2, 3.5. * Left upper lung mass measuring 26 x 19 mm, previously 24 x 23 mm and 16 x 14 mgr. Max SUV 10.2 pre viously 13.6, 6.0. * Subcarinal lymph node max SUV 2.3 previously 2.8, 7.4. * Right paratracheal lymph node max SUV 2.8, previously 3.2, 7.4. * Right supraclavicular/right high paratracheal lymph node max SUV 2.4 previously 2.7, 7.4. ABDOMEN AND PELVIS: No suspicious radiotracer activity. MUSCULOSKELETAL STRUCTURES: No suspicious radiotracer activity. Osseous uptake in the sternum with Max SUV 2.5 previously 5.5, 5.3. OTHER CT: Bilaterally aphakia. Atherosclerosis of the carotid bifurcations. This course of the cuenca ry arteries and arterial vasculature. Stable right iliac crest probable bone island IMPRESSION: Interval decrease in metabolic activity of the lymph nodes and pulmonary lesions compared to immediat e prior. Size of the dominant bilateral upper pulmonary lesions are fresh and larger possibly due to posttreatment change.
== END | disposition home or self-care (01) ==
LOC: RADPETMAIN 14:32
PROVIDERS: ATTEND Internal Medicine
DX: C34.11 Malignant neoplasm of upper lobe, right bronchus or lung (principal); J98.4 Other disorders of lung
CPT/HCPCS: 78815; A9552

== ENCOUNTER → 2024-06-08 | Outpatient (CLI) | payer MEDICARE, OTHER ==
--- NOTE | 2024-06-08 22:39 | PE ---
EXAMINATION TYPE: PET CT fusion skull to thigh DATE OF EXAM: 06/08/2024 CLINICAL INDICATION:Female, 64 years old with history of malignant neoplasm upper lobe. Breast cancer . TECHNIQUE: Following the intravenous administration of 9.04 mCi of F-18 FDG, whole body images are performed from the skull base to the midthigh. Images are reviewed on the computer in the coronal, a xial, and sagittal planes. Reconstructed rotating images are created on independent workstation and reviewed on the computer. A non-contrast CT is performed in conjunction with the PET scan. Glucose level 112 mg/dL CT DLP: 155.84 mGycm, Automated exposure control for dose reduction was used. COMPARISON: CT 12/31/2023, 05/27/2023, 04/14/2023, PET/CT 02/17/2024, 11/25/2023, 05/15/2023, MRI: None FINDINGS: Mediastinal SUV mean is 1.9. Hepatic parenchyma SUV mean is 2.2. SKULL BASE AND NECK: No suspicious radiotracer activity. CHEST, MEDIASTINUM, AND HILAR REGION: * Right upper lung mass redemonstrated measuring 2.8 x 2.1 cm, previously 2.6 x 1.8 cm. Demonstrates a maximal SUV of 7.0, previously 6.5, 8.2, 3.5. * Left upper lung mass redemonstrated measuring 2.4 x 1.7 cm, previously 2.6 x 1.9 cm. Demonstrates a maximum SUV of 12.7, previously 10.2, 13.6, 6.0. * Right lower lobe 2.5 x 1.6 cm lung mass with a maximum SUV of 2.3, previously 2.1. * Subcarinal lymph node max SUV 2.4, previously 2.3, 2.8, 7.4. * Right paratracheal lymph node max SUV 2.7, previously 2.8, 3.2, 7.4. * Right supraclavicular/right high paratracheal lymph node max SUV 2.4, previously 2.4, 2.7, 7.4. ABDOMEN AND PELVIS: No suspicious radiotracer activity. MUSCULOSKELETAL STRUCTURES: Right proximal femur 7 mm sclerotic focus redemonstrated. Demonstrates a maximum SUV of 1.7, previous ly 1.3. Sclerotic lesion measuring 3.1 cm within the lesser trochanter of the left femur redemonstrated. Demo nstrates a maximum SUV of 2.1, previously 1.2. Right iliac bone 9 mm sclerotic focus redemonstrated. Demonstrates a maximum SUV of 2.9, previously 1 .6. Sclerotic 2.2 cm lesion redemonstrated within the anterior T12 vertebral body. Demonstrates a maximum SUV of 2.8, previously 1.4. 8 mm sclerotic lesion within the left lateral aspect of the C6 vertebral body redemonstrated. Demonst rate a maximum SUV of 3.1, previously 1.8. Redemonstrated sclerotic lesion within the sternum with a maximum SUV of 3.2, previously 2.5, 5.5, 5. 3. No new osseous lesions identified. OTHER CT: Bilaterally aphakia. Atherosclerosis of the carotid bifurcations. This course of the cuenca ry arteries and arterial vasculature. 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 Stable righ t iliac crest probable bone island. Sigmoid diverticulosis. IMPRESSION: Overall mixed response to therapy. 1. Mild increase radiotracer uptake within the 2 dominant pulmonary lesions compared to prior PET/CT . Additional right lower lung lesion demonstrates radiotracer activity at background levels. 2. Previously seen mediastinal lymph nodes demonstrate activity near background levels. 3. Stable size of the several osseous sclerotic lesions. These demonstrate marginal increase in radi otracer uptake but are at levels near background. 4. No new sites of abnormal radiotracer uptake. [facility], , 06/08/2024 10:36 PM
== END | disposition home or self-care (01) ==
LOC: RADPETMAIN 10:12
PROVIDERS: ATTEND Internal Medicine
DX: C34.90 Malignant neoplasm of unspecified part of unspecified bronchus or lung
CPT/HCPCS: 78815

== ENCOUNTER → 2024-08-08 | Outpatient (CLI) | payer MEDICARE, OTHER ==
--- NOTE | 2024-08-09 07:49 | CA ---
Transthoracic Echo Report Name: Joan Huston Age: 64 Gender: F : 1960 Exam Date: 08/08/2024 13:04 Exam Location: [place] [facility] Ht (in): 64 Wt (lb): 84 Ordering Physician: Dawn Rodriguez MD Attending/Referring Phys: Dawn Rodriguez MD Nurse Rn [facility] Lelo Sherwood RDCS Procedure CPT: Indications: C50.912 breast ca Cardiac Hx: Technical Quality: Fair Contrast 1: Total Dose (mL): Contrast 2: Total Dose (mL): MEASUREMENTS (Male / Female) Normal Values 2D ECHO LV Diastolic Diameter PLAX 4.1 cm 4.2 - 5.9 / 3.9 - 5.3 cm LV Systolic Diameter PLAX 2.6 cm IVS Diastolic Thickness 0.7 cm 0.6 - 1.0 / 0.6 - 0.9 cm LVPW Diastolic Thickness 0.6 cm 0.6 - 1.0 / 0.6 - 0.9 cm LV Relative Wall Thickness 0.3 RV Internal Dim ED PLAX 3.2 cm LA Systolic Diameter LX 2.5 cm 3.0 - 4.0 / 2.7 - 3.8 cm LV Diastolic Volume MOD 4C 57.9 cm??? LV Systolic Volume MOD 4C 32.0 cm??? LV Ejection Fraction MOD 4C 44.7 % LV Cardiac Index MOD 4C 2122.8 cm???/min???m??? LV Diastolic Length 4C 8.2 cm LV Systolic Length 4C 6.8 cm LV Diastolic Volume MOD 2C 69.3 cm??? LV Systolic Volume MOD 2C 40.5 cm??? LV Ejection Fraction MOD 2C 41.6 % LV Cardiac Index MOD 2C 2362.3 cm???/min???m??? LV Diastolic Length 2C 7.7 cm LV Systolic Length 2C 6.4 cm LA Volume 21.7 cm??? 18 - 58 / 22 - 52 cm??? LA Volume Index 16.8 cm???/m??? 16 - 28 cm???/m??? M-MODE Aortic Root Diameter MM 3.3 cm AV Cusp Separation MM 2.2 cm DOPPLER AV Peak Velocity 131.8 cm/s AV Peak Gradient 7.0 mmHg MV Area PHT 3.7 cm??? Mitral E Point Velocity 68.0 cm/s Mitral A Point Velocity 91.2 cm/s Mitral E to A Ratio 0.7 MV Deceleration Time 206.3 ms TR Peak Velocity 219.5 cm/s TR Peak Gradient 19.3 mmHg Right Ventricular Systolic Press 23.5 mmHg FINDINGS Left Ventricle Left ventricular ejection fraction is estimated at 55 %. Left ventricular cavity size normal. Left ventricular wall thickness normal. Normal left ventricular wall motion. . Right Ventricle Normal right ventricular size and function. Right ventricular systolic pressure within normal limits. Right Atrium Normal right atrial size. No right atrial thrombus or mass seen. Left Atrium Normal left atrial size. No left atrial thrombus or mass present. Mitral Valve Structurally normal mitral valve. No mitral stenosis, regurgitation or prolapse. Aortic Valve Trileaflet aortic valve. No aortic valve stenosis or regurgitation. Tricuspid Valve Structurally normal tricuspid valve. Trace to mild tricuspid regurgitation. Pulmonic Valve Pulmonic valve not well visualized. No pulmonic regurgitation. Pericardium No pericardial or pleural effusion. Aorta Normal size aortic root and proximal ascending aorta. CONCLUSIONS LV size and systolic function is normal. No significant abnormality on the Doppler exam. No pericardial effusion Previewed by: Dr. Cara Cohen MD (Electronically Signed) Final Date: 09 August 2024 07:48
== END | disposition home or self-care (01) ==
LOC: RADECHMAIN 12:50
PROVIDERS: ATTEND Internal Medicine
DX: Z01.818 Encounter for other preprocedural examination (principal); C50.912 Malignant neoplasm of unspecified site of left female breast
CPT/HCPCS: 93306

== ENCOUNTER → 2024-09-14 | Outpatient (CLI) | payer MEDICARE, OTHER ==
--- NOTE | 2024-09-15 11:39 | PE ---
EXAMINATION TYPE: PET CT fusion skull to thigh DATE OF EXAM: 09/14/2024 CLINICAL INDICATION:Female, 64 years old with history of C50.912 BREAST CANCER; TECHNIQUE: Following the intravenous administration of 10.39 mCi of F-18 FDG, whole body images are performed from the skull base to the midthigh. Images are reviewed on the computer in the coronal, axial, and sagittal planes. Reconstructed rotating images are created on independent workstation and reviewed on the computer. A non-contrast CT is performed in conjunction with the PET scan. Glucose level 116 mg/dL CT DLP: 144.75 mGycm, Automated exposure control for dose reduction was used. COMPARISON: CT 12/31/2023, 05/19/2023, PET/CT 06/08/2024, 02/17/2024, 11/25/2023, 05/15/2023, MRI: FINDINGS: Mediastinal SUV mean is 1.6. Hepatic parenchyma SUV mean is 1.9. SKULL BASE AND NECK: No suspicious radiotracer activity. CHEST, MEDIASTINUM, AND HILAR REGION: * Right upper lung mass redemonstrated measuring 2.6 x 2.1 cm, previously 2.8 x 2.1 cm. Demonstrates a maximal SUV of 6.8, previously 7.0, 6.5, 8.2, 3.5. * Left upper lung mass redemonstrated measuring 2.5 x 1.8 cm, previously 2.4 x 1.7 cm. Demonstrates a maximum SUV of 11.8, previously 12.7, 10.2, 13.6, 6.0. * Right lower lobe 1.9 x 1.1 cm nodule, previously 2.5 x 1.6 cm. Demonstrates a maximum SUV of 1.6, previously 2.3, 2.1. * New medial left lower lobe 1.4 cm pulmonary nodule with a maximum SUV of 7.0. * New left upper lobe pulmonary nodule measuring up to 7 mm with a maximum SUV of 2.0. * No new FDG avid lymphadenopathy. * No suspicious FDG activity within the breasts or axilla bilaterally. ABDOMEN AND PELVIS: Continued FDG radiotracer uptake within the rectovaginal region with maximum SUV of 18.2. May represe nt FDG avid urine. Consider direct visualization. No new suspicious radiotracer activity. MUSCULOSKELETAL STRUCTURES: Sclerotic lesion measuring 3.2 cm within the lesser trochanter of the left femur redemonstrated. Demo nstrates a maximum SUV of 1.1, previously 2.1, 1.2. Right iliac bone 10 mm sclerotic focus redemonstrated. Demonstrates a maximum SUV of 2.1, previously 2.9, 1.6. Sclerotic 2.3 cm lesion redemonstrated within the anterior T12 vertebral body. Demonstrates a maximum SUV of 2.8, previously 2.8, 1.4. 10 mm sclerotic lesion within the left lateral aspect of the C6 vertebral body redemonstrated. Demons trate a maximum SUV of 2.3, previously 3.1, 1.8. Redemonstrated sclerotic lesion within the sternum with a maximum SUV of 1.6, previously 3.2, 2.5, 5. 5, 5.3. Redemonstration of a left lateral mass 1.2 cm sclerotic lesion with a maximum SUV 1.9. No new osseous lesions identified. OTHER CT: Bilaterally aphakia. Atherosclerosis of the carotid bifurcations. Atherosclerosis of the co ronary arteries and arterial vasculature. 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 Stable right iliac crest probable bone island. Sigmoid diverticulosis. Centrilobular emphysematous changes. IMPRESSION: Overall mixed response to therapy. Similar FDG avid bilateral pulmonary nodules with 2 new FDG avid left lung pulmonary nodules. Continu ed treated right lower lobe pulmonary nodule. Metastatic osseous lesions are at background levels. No new FDG avid adenopathy or osseous lesions. [facility], , 09/15/2024 11:36 AM
== END | disposition home or self-care (01) ==
LOC: RADPETMAIN 11:34
PROVIDERS: ATTEND Internal Medicine
DX: C50.912 Malignant neoplasm of unspecified site of left female breast (principal); C79.51 Secondary malignant neoplasm of bone; Z85.3 Personal history of malignant neoplasm of breast
CPT/HCPCS: 78815; A9552

== ENCOUNTER → 2024-11-09 | Outpatient (CLI) | payer MEDICARE, OTHER ==
--- NOTE | 2024-11-09 15:54 | US ---
EXAMINATION TYPE: US venous doppler duplex LE LT DATE OF EXAM: 11/09/2024 3:14 PM COMPARISON: NONE CLINICAL INDICATION: Female, 64 years old with history of R22.42 SWELLING, MASS AND LUMP, LLE; Left l eg swelling, Pain TECHNIQUE: The lower extremity deep venous system is examined utilizing real time linear array sonog david with graded compression, color doppler sonography, and spectral doppler. SIDE PERFORMED: Left FINDINGS: VESSELS IMAGED: Common Femoral Vein Deep Femoral Vein Greater Saphenous Vein * Femoral Vein Popliteal Vein Small Saphenous Vein * Proximal Calf Veins (* superficial vessels) Left Leg: Positive for DVT within left popliteal and proximal calf veins, Color Doppler imaging show s patency of the vessels. Spectral waveforms are within normal limits. Results called to Dr. Rodriguez at time of exam IMPRESSION: Deep vein thrombosis within the left popliteal vein and proximal calf. [facility], , 11/09/2024 3:52 PM
== END | disposition home or self-care (01) ==
LOC: RADUSWWP 14:52
PROVIDERS: ATTEND Internal Medicine
DX: I82.432 Acute embolism and thrombosis of left popliteal vein (principal)

== ENCOUNTER → 2024-12-22 | Outpatient (CLI) | payer MEDICARE, OTHER | END | disposition home or self-care (01) | LOC: RADPETMAIN 13:07 | PROVIDERS: ATTEND Internal Medicine | DX: Z53.9 Procedure and treatment not carried out, unspecified reason (principal) ==

== ENCOUNTER → 2025-01-04 | Outpatient (CLI) | payer MEDICARE, OTHER ==
--- NOTE | 2025-01-05 11:26 | PE ---
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 Images are reviewed on the computer in the coronal, axial, a nd sagittal planes. Reconstructed rotating images are created on independent workstation and reviewe d on the computer. A localization and attenuation correction CT is performed in conjunction with th e PET scan. DLP: 279.1 mGycm SCAN: Subsequent Blood glucose: 104 mg/dL Average Mediastinum SUV: 1.65 Average Liver SUV: 1.84 FINDINGS: NECK: Suspicious soft tissue uptake is not evident. THORAX: There is mild uptake within the anterior left lung. Image 73, SUV 1.3. This is intermediate a nd may be early metastasis or inflammatory change. Diffuse uptake is present through the posterior right upper lung field. This is more focal in the pos terior right lung image 76, SUV 3.12. There is a focal area of intense uptake within the upper left l ree. Image 79, SUV 6.81 previous uptake 11.75. A large area of uptake is within the right mid lung. I mage 84, SUV 6.41. Previous uptake 5.84. Multiple smaller ill-defined scattered areas are within the mid and posterior right lung suspicious for multiple small metastatic lesions. Example image 104, SUV 4.28. Additional lower lung field uptake is present within the lingula image 120, SUV 3.28 and along the lateral right lung, image 122, SUV 5.26. There may be some uptake within the medial aortopulmonic window image 87, SUV 4.01. Right infrahilar uptake is present, image 108, SUV 5.47. ABDOMEN: No suspicious intra-abdominal uptake. PELVIS: No suspicious intrapelvic uptake OSSEOUS STRUCTURES: Some mild scattered areas of increased uptake within the cervical spine are prese nt. This is relatively diffuse with small foci. Sample images C3, image 46 SUV 2.5. T1 image 57, SUV 3.72. Diffuse uptake appears to be through the ribs. Additional foci of abnormal uptake are within th e right superior acetabulum, 201, SUV 2.65. Scattered areas of uptake are within the thoracic spine including adjacent to a sclerotic lesion lower thoracic level image 122, SUV 3.32. LOCALIZATION CT: Kyphosis is present through the thoracic spine. COMPARISON: Intense areas of uptake within the bilateral lungs correspond to areas of persistent upta ke on the current exam. Uptake adjacent to the descending thoracic aorta is not clearly identified o n the current exam. Uptake within the left upper lung field has diminished. Diffuse scattered mild up take within the right mid and lower lung field appears to be new. Uptake within the osseous structure s appears more extensive however, this can be post treatment changes. IMPRESSION: 1. Diminished uptake within the left upper lung field mass. 2. Mild increase in uptake within the right lung mass. 3. New scattered areas of mild uptake bilaterally but more extensive in the right mid and lower lung garcia. 4. Diffuse scattered areas of uptake within the osseous structures may be post treatment related. How ever the more focal heterogeneity could indicate some early underlying metastatic lesions. [facility], , 01/05/2025 11:24 AM
== END | disposition home or self-care (01) ==
LOC: RADPETMAIN 10:36
PROVIDERS: ATTEND Internal Medicine
DX: C34.11 Malignant neoplasm of upper lobe, right bronchus or lung (principal); R91.8 Other nonspecific abnormal finding of lung field
CPT/HCPCS: 78815; A9552